=== PATIENT | female | born 1970 | race Caucasian/White ===

== ENCOUNTER → 2020-02-07 | Outpatient (CLI) | payer OTHER | LOC: CT 01-18 15:30 | DX: R91.1 Solitary pulmonary nodule (principal); J98.11 Atelectasis | CPT/HCPCS: 71250 ==

== ENCOUNTER → 2020-08-14 | Outpatient (CLI) | payer OTHER | LOC: KOH-I 08-13 14:00 | DX: R91.8 Other nonspecific abnormal finding of lung field (principal) | CPT/HCPCS: 71250 ==

== ENCOUNTER → 2021-08-21 | Outpatient (CLI) | payer BC | LOC: KOH-I 12:50 | DX: R91.8 Other nonspecific abnormal finding of lung field (principal) | CPT/HCPCS: 71250 ==